=== PATIENT | male | born 1950 | race Caucasian/White ===

== ENCOUNTER 2017-08-30 10:52 | Emergency (ER) | payer SELFPAY ==
[2017-08-30 12:00] LABS: INFLUENZA A PATIENT NEGATIVE (NEGATIVE)
[2017-08-30 12:02] LABS: INFLUENZA B PATIENT POSITIVE (NEGATIVE); OBC FLU VALID
[2017-08-30] MEDS: OSELTAMIVIR 75 MG CAPSULE PO ×2 (12:14)
== END 2017-08-30 12:15 | disposition home or self-care (01) ==
LOC: ER 10:52
DX: J10.1 Influenza due to other identified influenza virus with other respiratory manifestations (principal); I10 Essential (primary) hypertension
CPT/HCPCS: 71046; 87804; 87804-59; 99285-25